=== PATIENT | female | born 1945 | race Caucasian/White ===

== ENCOUNTER 2016-09-10 18:07 | Observation (INO) ==
[2016-09-10 20:11] LABS: Basophils # 0.1 K/mcL (0.0-0.2); Basophils % 0.6 %; Eosinophils % 0.3 %; Hematocrit 38.1 % (35.3-44.9); Hemoglobin 12.1 g/dL (11.5-15.4); Immature Granulocytes % 0.6 % (0-4); Lymphocytes % 30.2 %; Mean Corpuscular HGB Conc 31.8 g/dL (31.6-35.5); Mean Corpuscular Hemoglobin 26.8 pg (28.0-33.3); Mean Corpuscular Volume 84.5 fL (83.0-100.0); Mean Platelet Volume 9.8 fL (9.4-12.4); Monocytes # 0.4 K/mcL (0.0-1.3); Monocytes % 4.4 %; Neutrophils # 6.3 K/mcL (1.6-8.9); Platelet Count 434 K/mcL (140-400); Red Blood Count 4.51 M/mcL (3.82-4.97); Red Cell Distribution Width 17.9 % (11.5-14.5); Segmented Neutrophils % 63.9 %
[2016-09-10 20:23] LABS: BUN/Creatinine Ratio 17 (6-26); Blood Urea Nitrogen 16 mg/dL (7-20); Calcium 9.5 mg/dL (8.6-10.8); Carbon Dioxide 30 mEq/L (19-29); Chloride 104 mEq/L (98-109); Glucose 104 mg/dL (70-99); Osmolality,Calculated 289 (280-300); Sodium 139 mEq/L (136-145); eGFR For African Americans > 60 (> 60); eGFR For Non-African Americans 60 (> 60)
[2016-09-10 20:23] LABS: Bilirubin,Urine Negative (Negative); Blood,Urine Negative (Negative); Clarity,Urine Clear (Clear); Color,Urine Yellow (Yellow); Glucose,Urine (UA) Normal (Normal); Ketones,Urine Negative (Negative); Leukocyte Esterase,Urine Negative (Negative); Nitrite,Urine Negative (Negative); PH,Urine 7.5 pH Units (5.0-8.0); Protein,Urine Negative (Neg-Trace); Specific Gravity,Urine 1.021 (1.010-1.025); Urobilinogen,Urine Normal (Normal)
[2016-09-10 21:01] LABS: Prothrombin Time 10.5 Seconds (9.4-12.1)
[2016-09-10 21:03] LABS: Activated Partial Thrombo Time 27.3 Seconds (26.0-36.0)
--- NOTE | 2016-09-10 23:16 | Emergency Department Note ---
Disposition Clinical Impression: Weakness Disposition: Admitted As Inpatient Condition: Fair General Adult HPI - General Chief complaint: ED Shortness of Breath/Dyspnea Stated complaint: AFTAB, weakness, abd pain Time Seen by Provider: 09/10/16 18:43 Source: patient Limitations: no limitations Nursing Notes Reviewed: Yes Vital Signs Reviewed: Yes - History of Present Illness HPI Narrative: 71-year-old female presents with increasing weakness over the past month. Family states she has been unable to ambulate over the past 24 hours. Patient denies chest pain or shortness of breath. She denies recent rash or headache or palpitations. Patient's changes in her medications. Denies abdominal pain or dysuria or hematuria or hematochezia. Patient does report intermittent black stools however she is taking iron. Denies diarrhea. Pain Scale: 0 - Related Data Home Medications Medication Instructions Recorded Confirmed Ranitidine HCl [Zantac] 150 mg PO BID PRN 12/16/14 09/10/16 Clopidogrel [Plavix] 75 mg PO DAILY 05/29/16 09/10/16 Esomeprazole Magnesium [Nexium] 40 mg PO DAILY 09/10/16 09/10/16 Ferrous Sulfate 325 mg PO DAILY 09/10/16 09/10/16 Vitamin B Complex [B Complex] 1 each PO DAILY 09/10/16 09/10/16 Allergies Allergy/AdvReac Type Severity Reaction Status Date / Time NSAIDS (Non-Steroidal Allergy Abdominal Verified 09/10/16 19:11 Anti-Inflamma Pain piroxicam [From Feldene] Allergy Hives Verified 09/10/16 19:11 aspirin AdvReac Nausea Verified 09/10/16 19:11 diazepam [From Valium] AdvReac Headache Verified 09/10/16 19:11 Oxycodone AdvReac Vomiting Verified 09/10/16 19:11 promethazine [From Phenergan] AdvReac Drowsy Verified 09/10/16 19:12 All systems ED: reviewed and negative except as stated. Constitutional: Reports: weakness Cardiovascular: Denies: chest pain, palpitations Respiratory: Denies: cough, dyspnea, wheezes Gastrointestinal: Denies: abdominal pain, nausea, vomiting, diarrhea Past Medical History - Past Medical History Attestation: Yes The following information was validated with the patient. Source: patient Medical history: Reports: arthritis, GERD, osteoporosis, other Surgical history: Reports: appendectomy, cholecystectomy, orthopedic, other, other Psychiatric history: Reports: no psych history - Social History Smoking Status: Never smoker Smokeless Tobacco Status: No Alcohol use: Reports: none Drug use: Reports: none Physical Exam General: Alert and in no acute distress Skin: Warm, dry, intact Head: Normocephalic and atraumatic Neck: Supple, trachea midline and no tenderness Cardiovascular: RRR, no murmur, normal perfusion Respiratory: CTAB, no wheezing, cough, or respiratory distress Musculoskeletal: Normal strength, no tenderness, swelling or deformity GI: Soft, nontender, nondistended. Bowel sounds present Neuro: A&O to person, place, time and situation. No focal deficits noted on exam Psychiatric: cooperative and appropriate mood and affect. - General Limitations: no limitations General appearance: alert, in no apparent distress Course Vital Signs Temperature 97.8 F 09/10/16 19:06 Pulse Rate 53 09/10/16 19:06 Respiratory Rate 18 09/10/16 19:06 Blood Pressure 195/73 09/10/16 19:06 O2 Sat by Pulse Oximetry 98 09/10/16 19:06 Temperature 98.5 F 09/10/16 22:27 Pulse Rate 54 09/10/16 21:40 Respiratory Rate 20 09/10/16 22:27 Blood Pressure 170/75 09/10/16 22:27 O2 Sat by Pulse Oximetry 96 09/10/16 21:40 Oxygen Delivery Oxygen Delivery Room Air Medical Decision Making - MDM Narrative Medical decision making narrative: Patient has an initial negative troponin. EKG showed sinus bradycardia with a rate of 54 and then a repeat EKG showed sinus bradycardia with a rate of 50. Urinalysis was negative for UTI. Patient will be admitted to the hospital for increasing weakness for further evaluation. - Medical Records Medical records reviewed: Yes I reviewed the patient's medical records. - Lab Data Lab results reviewed: Yes I reviewed the patient's lab results. Result diagrams: 09/10/16 19:52 09/10/16 19:52 Lab Results 09/10/16 09/10/16 09/10/16 Range/Units 19:52 19:52 19:52 WBC 9.8 (4.3-11.1) K/mcL RBC 4.51 (3.82-4.97) M/mcL Hgb 12.1 (11.5-15.4) g/dL Hct 38.1 (35.3-44.9) % MCV 84.5 (83.0-100.0) fL MCH 26.8 L (28.0-33.3) pg MCHC 31.8 (31.6-35.5) g/dL RDW 17.9 H (11.5-14.5) % Plt Count 434 H (140-400) K/mcL MPV 9.8 (9.4-12.4) fL Immature Gran % 0.6 (0-4) % Seg Neutrophils % 63.9 % Lymphocytes % 30.2 % Monocytes % 4.4 % Eosinophils % 0.3 % Basophils % 0.6 % Neutrophils # 6.3 (1.6-8.9) K/mcL Lymphocytes # 3.0 (0.6-4.6) K/mcL Monocytes # 0.4 (0.0-1.3) K/mcL Eosinophils # 0.0 (0.0-0.6) K/mcL Basophils # 0.1 (0.0-0.2) K/mcL PT (9.4-12.1) Seconds INR APTT (26.0-36.0) Seconds Sodium 139 (136-145) mEq/L Potassium 4.0 (3.5-4.5) mEq/L Chloride 104 (98-109) mEq/L Carbon Dioxide 30 H (19-29) mEq/L BUN 16 (7-20) mg/dL Creatinine 0.92 (0.57-1.11) mg/dL Est GFR ( Amer) > 60 (> 60) Est GFR (Non-Af Amer) 60 (> 60) BUN/Creatinine Ratio 17 (6-26) Glucose 104 H (70-99) mg/dL Calculated Osmolality 289 (280-300) Lactic Acid 0.9 (0.5-2.2) mmol/L Calcium 9.5 (8.6-10.8) mg/dL Troponin I (0-0.03) ng/mL B-Natriuretic Peptide (0-100) pg/mL Urine Color (Yellow) Urine Clarity (Clear) Urine pH (5.0-8.0) pH Units Ur Specific [place] (1.010-1.025) Urine Protein (Neg-Trace) mg/dL Urine Glucose (UA) (Normal) mg/dL Urine Ketones (Negative) mg/dL Urine Blood (Negative) Urine Nitrite (Negative) Urine Bilirubin (Negative) Urine Urobilinogen (Normal) mg/dL Ur Leukocyte Esterase (Negative) Ur Culture Indicated? (NO) 09/10/16 09/10/16 09/10/16 Range/Units 19:52 19:52 19:52 WBC (4.3-11.1) K/mcL RBC (3.82-4.97) M/mcL Hgb (11.5-15.4) g/dL Hct (35.3-44.9) % MCV (83.0-100.0) fL MCH (28.0-33.3) pg MCHC (31.6-35.5) g/dL RDW (11.5-14.5) % Plt Count (140-400) K/mcL MPV (9.4-12.4) fL Immature Gran % (0-4) % Seg Neutrophils % % Lymphocytes % % Monocytes % % Eosinophils % % Basophils % % Neutrophils # (1.6-8.9) K/mcL Lymphocytes # (0.6-4.6) K/mcL Monocytes # (0.0-1.3) K/mcL Eosinophils # (0.0-0.6) K/mcL Basophils # (0.0-0.2) K/mcL PT 10.5 (9.4-12.1) Seconds INR 1.0 APTT 27.3 (26.0-36.0) Seconds Sodium (136-145) mEq/L Potassium (3.5-4.5) mEq/L Chloride (98-109) mEq/L Carbon Dioxide (19-29) mEq/L BUN (7-20) mg/dL Creatinine (0.57-1.11) mg/dL Est GFR ( Amer) (> 60) Est GFR (Non-Af Amer) (> 60) BUN/Creatinine Ratio (6-26) Glucose (70-99) mg/dL Calculated Osmolality (280-300) Lactic Acid (0.5-2.2) mmol/L Calcium (8.6-10.8) mg/dL Troponin I 0.00 (0-0.03) ng/mL B-Natriuretic Peptide 175 H (0-100) pg/mL Urine Color (Yellow) Urine Clarity (Clear) Urine pH (5.0-8.0) pH Units Ur Specific [place] (1.010-1.025) Urine Protein (Neg-Trace) mg/dL Urine Glucose (UA) (Normal) mg/dL Urine Ketones (Negative) mg/dL Urine Blood (Negative) Urine Nitrite (Negative) Urine Bilirubin (Negative) Urine Urobilinogen (Normal) mg/dL Ur Leukocyte Esterase (Negative) Ur Culture Indicated? (NO) 09/10/16 Range/Units 20:15 WBC (4.3-11.1) K/mcL RBC (3.82-4.97) M/mcL Hgb (11.5-15.4) g/dL Hct (35.3-44.9) % MCV (83.0-100.0) fL MCH (28.0-33.3) pg MCHC (31.6-35.5) g/dL RDW (11.5-14.5) % Plt Count (140-400) K/mcL MPV (9.4-12.4) fL Immature Gran % (0-4) % Seg Neutrophils % % Lymphocytes % % Monocytes % % Eosinophils % % Basophils % % Neutrophils # (1.6-8.9) K/mcL Lymphocytes # (0.6-4.6) K/mcL Monocytes # (0.0-1.3) K/mcL Eosinophils # (0.0-0.6) K/mcL Basophils # (0.0-0.2) K/mcL PT (9.4-12.1) Seconds INR APTT (26.0-36.0) Seconds Sodium (136-145) mEq/L Potassium (3.5-4.5) mEq/L Chloride (98-109) mEq/L Carbon Dioxide (19-29) mEq/L BUN (7-20) mg/dL Creatinine (0.57-1.11) mg/dL Est GFR ( Amer) (> 60) Est GFR (Non-Af Amer) (> 60) BUN/Creatinine Ratio (6-26) Glucose (70-99) mg/dL Calculated Osmolality (280-300) Lactic Acid (0.5-2.2) mmol/L Calcium (8.6-10.8) mg/dL Troponin I (0-0.03) ng/mL B-Natriuretic Peptide (0-100) pg/mL Urine Color Yellow (Yellow) Urine Clarity Clear (Clear) Urine pH 7.5 (5.0-8.0) pH Units Ur Specific [place] 1.021 (1.010-1.025) Urine Protein Negative (Neg-Trace) mg/dL Urine Glucose (UA) Normal (Normal) mg/dL Urine Ketones Negative (Negative) mg/dL Urine Blood Negative (Negative) Urine Nitrite Negative (Negative) Urine Bilirubin Negative (Negative) Urine Urobilinogen Normal (Normal) mg/dL Ur Leukocyte Esterase Negative (Negative) Ur Culture Indicated? NO (NO) - Radiology Data Radiology results reviewed: Yes I reviewed the patient's radiology results.
--- NOTE | 2016-09-10 23:22 | Internal Med History&Physical ---
Date of Encounter: 09/11/16 Time of Encounter: 23:15 Assessment and Plan (1) Generalized weakness Current visit: Yes Status: Acute Generalized weakness, associated with mild shortness of breath - present for almost one month, worse over the past 12-24 hours - unclear etiology Continue IV fluids, continue home meds EKG - sinus bradycardia with no acute ST-T changes Troponin - negative Chest x-ray - no acute process BN peptide - 175 H&H - 12.1 and 38.1 Urinalysis - normal Cardiac telemetry, labs in a.m. (2) GERD (gastroesophageal reflux disease) Current visit: Yes Status: Chronic Chronic GERD - continue Nexium Qualifiers: Esophagitis presence: without esophagitis Qualified Code(s): K21.9 - Gastro -esophageal reflux disease without esophagitis (3) TIA (transient ischemic attack) Current visit: Yes Status: Chronic History of TIA - patient is on Plavix No focal deficits at this time, no facial droop, no speech deficit No suspicion for TIA or CVA at this time Qualifiers: Transient cerebral ischemia type: unspecified Qualified Code(s): G45.9 - Transient cerebral ischemic attack, unspecified (4) DVT prophylaxis Current visit: Yes Status: Acute Continue SCDs, ambulate Internal Medicine - H&P: HPI Chief complaint: Generalized weakness, shortness of breath Admitted From: Emergency Dept Plans for Post Hospital Care: Home History of present illness: Ms. Jacques is a 71 year old female with past medical history of TIA and GERD. She presents to the ED with complaints of generalized weakness and shortness of breath. On examination patient is awake and alert. Not in any distress. Able to provide HISTORY. No family members at bedside. Patient states she has been having increasing generalized weakness over the past 1 month. She states she donated blood about 1 month ago and has been having this weakness ever since. She also complains of mild weakness since then. Patient states this afternoon around 2 PM she had difficulty ambulating and became short of breath and also had generalized weakness. Patient's family members called the squad and patient was then brought to the ED. Patient denies chest pain, denies palpitations, denies fever or diarrhea or abdominal pain. Patient denies dysuria or hematuria or hematochezia. No aggravating or alleviating factors. No other associated symptoms. Patient's symptoms seem to be vague at this time. Unclear etiology of generalized weakness shortness of breath. Initial evaluation in the ED is negative. BNP peptide is slightly elevated at 175 and troponin is negative. EKG shows sinus bradycardia and no acute ST-T changes. Chest x-ray does not show any acute process. Patient is being placed on observation for generalized weakness. We will repeat labs in a.m. and repeat EKG in a.m. Echocardiogram was done in November 2015 and shows LVEF of 60% with normal LV size and function and evidence of mild diastolic dysfunction and mildly dilated RV. Continue all home medications. Patient takes Plavix because she is allergic to aspirin. She has a history of TIA. Patient has been explained about her condition and plan of care. Understood and agreed. No unanswered questions. CODE STATUS full code. Past Med Surg Social Fam HX - Past Medical History Medical history: arthritis, GERD, osteoporosis, other Psychiatric history: no psych history - Past Surgical History Surgical History: appendectomy, cholecystectomy, orthopedic, other, other - Social History Smoking Status: Never smoker Smokeless Tobacco Status: No Alcohol use: none Drug use: none - Family History Father Hx Family Cardiac Disorders: Yes (CHF) Sister Living Status: Hx Family Cancer: Yes (colon and lung) Mother Hx Family Endocrine Disorder: Yes (DM) Internal Medicine - H&P: Meds Ranitidine HCl [Zantac] 150 mg PO BID PRN 12/16/14 [History] Clopidogrel [Plavix] 75 mg PO DAILY 05/29/16 [History] Esomeprazole Magnesium [Nexium] 40 mg PO DAILY 09/10/16 [History] Ferrous Sulfate 325 mg PO DAILY 09/10/16 [History] Vitamin B Complex [B Complex] 1 each PO DAILY 09/10/16 [History] Allergies NSAIDS (Non-Steroidal Anti-Inflamma Allergy (Verified 09/10/16 19:11) Abdominal Pain piroxicam [From Feldene] Allergy (Verified 09/10/16 19:11) Hives aspirin Adverse Reaction (Verified 09/10/16 19:11) Nausea diazepam [From Valium] Adverse Reaction (Verified 09/10/16 19:11) Headache Oxycodone Adverse Reaction (Verified 09/10/16 19:11) Vomiting promethazine [From Phenergan] Adverse Reaction (Verified 09/10/16 19:12) Drowsy All Systems PM: A 10-system review of systems was performed and is negative for pertinent findings except as documented above in the HPI. - Constitutional Constitutional: fatigue, weakness, no excessive sweating, no fever(s) - EENT Eyes: no blurry vision - Cardiovascular Cardiovascular ROS IM: dyspnea, dyspnea on exertion, no chest pain, no edema, no orthopnea, no syncope - Respiratory Respiratory: dyspnea, dyspnea on exertion, no cough, no hemoptysis, no wheezing , no chest congestion - Gastrointestinal Gastrointestinal: nausea, no abdominal pain, no bloating, no cramping, no diarrhea, no hematemesis, no hematochezia, no vomiting - Genitourinary Genitourinary: no dysuria - Musculoskeletal Musculoskeletal ROS IM: back pain - Neurological Neurological ROS: no abnormal gait, no abnormal speech, no dizziness, no loss of vision, no numbness, no tingling - Constitutional Vitals: Temp Pulse Resp BP Pulse Ox 98.5 F 54 20 170/75 96 09/10/16 22:27 09/10/16 21:40 09/10/16 22:27 09/10/16 22:27 09/10/16 21:40 General appearance: Present: A&O X 3, pleasant, no acute distress, answers questions appropriately - Head Head exam: Present: atraumatic - Eye Eye exam: Present: EOMI - ENT ENT exam: Present: mucous membranes moist - Neck Neck exam general surgery: Present: supple - Respiratory Respiratory exam: Present: CTAB. Absent: accessory muscle use, rales, rhonchi, wheezes, tachypnea - Cardiovascular Cardiovascular exam: Present: RRR, +S1, +S2, systolic murmur - GI/Abdominal GI/Abdominal exam: Present: soft, no peritoneal signs. Absent: distended, firm , guarding, rigid, tenderness - Extremities Exam Extremities exam: Present: radial pulses palpable and symetrical. Absent: cyanotic, pedal edema, tenderness - Neurological Exam Neurological exam: Present: alert, oriented X3, no focal deficits. Absent: facial droop, speech deficit Internal Med - H&P Results - Labs CBC & Chem 7: 09/10/16 19:52 09/10/16 19:52
[2016-09-10] MEDS ORDERED: Naloxone 0.4 MG/ML INJ IVP PRN (23:46)
[2016-09-10] MEDS ORDERED: Acetaminophen 325 MG TABLET PO PRN (23:46)
[2016-09-10] MEDS ORDERED: Ondansetron 4 MG/2 ML VIAL IVP PRN (23:46)
[2016-09-11] MEDS: 0.9 % Sodium Chloride 1,000 ML IVC SCH ×2 (01:48→15:28)
[2016-09-11] MEDS: Famotidine 20 MG/2 ML VIAL IVP SCH ×2 (05:50→17:29)
[2016-09-11 06:03] LABS: Hematocrit 34.5 % (35.3-44.9); Mean Corpuscular HGB Conc 31.9 g/dL (31.6-35.5); Mean Corpuscular Hemoglobin 26.8 pg (28.0-33.3); Mean Corpuscular Volume 84.1 fL (83.0-100.0); Platelet Count 377 K/mcL (140-400); Red Cell Distribution Width 17.8 % (11.5-14.5)
[2016-09-11 06:14] LABS: BUN/Creatinine Ratio 16 (6-26); Blood Urea Nitrogen 13 mg/dL (7-20); Calcium 8.7 mg/dL (8.6-10.8); Carbon Dioxide 30 mEq/L (19-29); Chloride 106 mEq/L (98-109); Glucose 102 mg/dL (70-99); Osmolality,Calculated 286 (280-300); Potassium 3.8 mEq/L (3.5-4.5); Sodium 138 mEq/L (136-145); eGFR For African Americans > 60 (> 60); eGFR For Non-African Americans > 60 (> 60)
[2016-09-11] MEDS: Vitamin B Complex/Vit C/Vit E 1 EACH TABLET PO SCH (08:37)
--- NOTE | 2016-09-11 15:13 | Electrocardiograph Report ---
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
--- NOTE | 2016-09-11 15:15 | Electrocardiograph Report ---
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
[2016-09-11 15:26] LABS: Hematocrit 39.1 % (35.3-44.9); Immature Reticulocyte % 25.4 % (11.0-38.0); Retculocyte # 0.11 M/mcL (0.05-0.10); Reticulocyte % 2.5 % (1.6-2.8)
[2016-09-11 15:59] LABS: Folate 12.7 ng/mL (7.0-31.4)
--- NOTE | 2016-09-11 17:04 | Internal Med Progress Note ---
Date of Encounter: 09/11/16 Time of Encounter: 16:00 - Assessment and plan (1) Generalized weakness Current Visit: Yes Status: Acute Assessment and plan: secondary to iron deficiency anemia from recent blood donation. Ferritin level is 31. reticulocyte is 0.11. hgb is 11-12. normal b12 and folate. increase ferrous sulfate to tid. repeat H&H in AM. pending echocardiogram results. if no drop in hgb will dc pt home in AM. (2) Symptomatic anemia Current Visit: Yes Status: Acute Assessment and plan: hgb at 12 but patient reports her hgb is always 14. plan as above. no bleeding. (3) GERD (gastroesophageal reflux disease) Current Visit: Yes Status: Chronic Assessment and plan: continue home meds Qualifiers: Esophagitis presence: without esophagitis Qualified Code(s): K21.9 - Gastro -esophageal reflux disease without esophagitis - Subjective Interval history: Patient states she developed significant shortness of breath while ambulating with PT this morning. She barely was able to walk a few steps. - Constitutional Vitals: Temp Pulse Resp BP Pulse Ox 98 F 54 15 133/69 90 09/11/16 15:35 09/11/16 15:35 09/11/16 15:35 09/11/16 15:35 09/11/16 15:35 General appearance: Present: cooperative, A&O X 3, pleasant, no acute distress, answers questions appropriately - Neck Neck exam general surgery: Present: supple, trachea midline. Absent: lymphadenopathy - Respiratory Respiratory exam: Present: CTAB - Cardiovascular Cardiovascular exam: Present: RRR - GI/Abdominal GI/Abdominal exam: Present: normal bowel sounds, soft. Absent: distended, tenderness - Extremities Exam Extremities exam: Absent: pedal edema - Back Exam Back exam: Absent: CVA tenderness (L), CVA tenderness (R) - Neurological Exam Neurological exam: Present: alert, oriented X3, no focal deficits, strengths equal and symetr throughout. Absent: facial droop, speech deficit - Skin Skin exam: Absent: rash Internal Medicine: Result - Labs CBC & Chem 7: 09/11/16 15:01 09/11/16 05:26 Labs: Short CBC 09/11/16 09/11/16 Range/Units 05:26 15:01 WBC 8.2 (4.3-11.1) K/mcL Hgb 11.0 L 12.0 (11.5-15.4) g/dL Hct 34.5 L 39.1 (35.3-44.9) % Plt Count 377 (140-400) K/mcL BMP 09/11/16 05:26 Sodium 138 Potassium 3.8 Chloride 106 Carbon Dioxide 30 H BUN 13 Creatinine 0.83 Glucose 102 H Calcium 8.7 Cardiac Enzymes 09/11/16 Range/Units 05:26 Troponin I 0.00 (0-0.03) ng/mL - ABG Interpretation ABG results: PT/INR, D-dimer PT 10.5 Seconds (9.4-12.1) 09/10/16 19:52 Consult Discharge Plan - Plan Referrals: Silvano Wagner DO [Primary Care Provider] -
[2016-09-11 18:02] LABS: % Iron Saturation 43 % (15-50); Iron 179 mcg/dL (50-170); Transferrin 297 mg/dL (180-382)
[2016-09-12 05:03] LABS: Basophils # 0.1 K/mcL (0.0-0.2); Basophils % 0.9 %; Eosinophils # 0.2 K/mcL (0.0-0.6); Hematocrit 34.2 % (35.3-44.9); Hemoglobin 10.6 g/dL (11.5-15.4); Immature Granulocytes % 0.4 % (0-4); Lymphocytes # 3.3 K/mcL (0.6-4.6); Lymphocytes % 41.3 %; Mean Corpuscular Hemoglobin 26.5 pg (28.0-33.3); Mean Corpuscular Volume 85.5 fL (83.0-100.0); Mean Platelet Volume 9.7 fL (9.4-12.4); Monocytes # 0.5 K/mcL (0.0-1.3); Monocytes % 5.9 %; Platelet Count 375 K/mcL (140-400); Red Cell Distribution Width 18.2 % (11.5-14.5); Segmented Neutrophils % 49.5 %
[2016-09-12 05:16] LABS: BUN/Creatinine Ratio 13 (6-26); Blood Urea Nitrogen 13 mg/dL (7-20); Calcium 8.7 mg/dL (8.6-10.8); Carbon Dioxide 30 mEq/L (19-29); Chloride 107 mEq/L (98-109); Glucose 100 mg/dL (70-99); Magnesium 1.9 mg/dL (1.6-2.6); Osmolality,Calculated 290 (280-300); Phosphorous 4.3 mg/dL (2.3-4.7); Sodium 140 mEq/L (136-145); eGFR For African Americans > 60 (> 60); eGFR For Non-African Americans 54 (> 60)
[2016-09-12] MEDS: Famotidine 20 MG/2 ML VIAL IVP SCH ×2 (06:07→18:45)
[2016-09-12] MEDS: Vitamin B Complex/Vit C/Vit E 1 EACH TABLET PO SCH (09:00)
--- NOTE | 2016-09-12 18:21 | Internal Med Progress Note ---
Date of Encounter: 09/12/16 Time of Encounter: 17:30 - Assessment and plan (1) Generalized weakness Current Visit: Yes Status: Acute Assessment and plan: secondary to iron deficiency anemia from recent blood donation and bradycardia. (2) Bradycardia Current Visit: Yes Status: Acute Assessment and plan: HR went down to 46 while awake early this morning. HR has remained in the 52-58 range today. check TSH, free t4. lunchroom monitor. Patient does not take any medications that could cause bradycardia. After walking, patient's heart rate was not adequate. It remained at 56. BP after walking went up to 170/70. Her SaO2 remained adequate. Echocardiogram showed LVEF 60%, normal left ventricular size and systolic function, normal right ventricular size and function, no evidence of PFO. (3) Symptomatic anemia Current Visit: Yes Status: Acute Assessment and plan: iron deficiency anemia. acute symptomatic anemia. hgb dropped to 10. no visible bleeding. check FOBT. hemodynamically stable. close monitor of hgb and if hgb continues to drop will consult GI. continue iron supplementation. Ferritin level is 31. reticulocyte is adequate at 0.11. normal b12 and folate. (4) GERD (gastroesophageal reflux disease) Current Visit: Yes Status: Chronic Assessment and plan: continue home meds Qualifiers: Esophagitis presence: without esophagitis Qualified Code(s): K21.9 - Gastro -esophageal reflux disease without esophagitis - Subjective Interval history: patient became very fatigue after walking. - Constitutional Vitals: Temp Pulse Resp BP Pulse Ox 97.7 F 58 14 125/68 96 09/12/16 15:12 09/12/16 15:12 09/12/16 15:12 09/12/16 15:12 09/12/16 15:12 General appearance: Present: cooperative, A&O X 3, pleasant, no acute distress, answers questions appropriately - Eye Eye exam: Present: PERRL, sclera anicteric - Neck Neck exam general surgery: Present: supple, trachea midline. Absent: lymphadenopathy - Respiratory Respiratory exam: Present: CTAB - Cardiovascular Cardiovascular exam: Present: bradycardia - GI/Abdominal GI/Abdominal exam: Present: normal bowel sounds, soft. Absent: distended, tenderness - Extremities Exam Extremities exam: Absent: pedal edema - Back Exam Back exam: Absent: CVA tenderness (L), CVA tenderness (R) - Neurological Exam Neurological exam: Present: alert, oriented X3, no focal deficits, strengths equal and symetr throughout. Absent: facial droop, speech deficit - Skin Skin exam: Absent: rash Internal Medicine: Result - Labs CBC & Chem 7: 09/12/16 04:35 09/12/16 04:35 Labs: Short CBC 09/12/16 Range/Units 04:35 WBC 8.1 (4.3-11.1) K/mcL Hgb 10.6 L (11.5-15.4) g/dL Hct 34.2 L (35.3-44.9) % Plt Count 375 (140-400) K/mcL Neutrophils # 4.0 (1.6-8.9) K/mcL BMP 09/12/16 04:35 Sodium 140 Potassium 4.0 Chloride 107 Carbon Dioxide 30 H BUN 13 Creatinine 1.00 Glucose 100 H Calcium 8.7 - ABG Interpretation ABG results: PT/INR, D-dimer PT 10.5 Seconds (9.4-12.1) 09/10/16 19:52 Consult Discharge Plan - Plan Referrals: Silvano Wagner DO [Primary Care Provider] -
[2016-09-13 05:39] LABS: Basophils # 0.1 K/mcL (0.0-0.2); Basophils % 0.8 %; Eosinophils # 0.2 K/mcL (0.0-0.6); Eosinophils % 2.1 %; Hemoglobin 10.8 g/dL (11.5-15.4); Immature Granulocytes % 0.5 % (0-4); Lymphocytes # 2.9 K/mcL (0.6-4.6); Mean Corpuscular Hemoglobin 25.7 pg (28.0-33.3); Mean Corpuscular Volume 85.5 fL (83.0-100.0); Mean Platelet Volume 9.5 fL (9.4-12.4); Monocytes # 0.5 K/mcL (0.0-1.3); Neutrophils # 4.9 K/mcL (1.6-8.9); Platelet Count 363 K/mcL (140-400); Red Blood Count 4.21 M/mcL (3.82-4.97); Red Cell Distribution Width 18.3 % (11.5-14.5); Segmented Neutrophils % 56.6 %
[2016-09-13 05:53] LABS: BUN/Creatinine Ratio 11 (6-26); Blood Urea Nitrogen 11 mg/dL (7-20); Calcium 8.8 mg/dL (8.6-10.8); Carbon Dioxide 32 mEq/L (19-29); Chloride 105 mEq/L (98-109); Glucose 95 mg/dL (70-99); Osmolality,Calculated 289 (280-300); Potassium 4.2 mEq/L (3.5-4.5); Sodium 140 mEq/L (136-145); eGFR For African Americans > 60 (> 60); eGFR For Non-African Americans 53 (> 60)
[2016-09-13] MEDS: Famotidine 20 MG/2 ML VIAL IVP SCH (05:59)
[2016-09-13 06:51] VITALS: BP 131/76
[2016-09-13] MEDS: Vitamin B Complex/Vit C/Vit E 1 EACH TABLET PO SCH (08:45)
--- NOTE | 2016-09-13 09:20 | Discharge Summary ---
Date of Encounter: 09/13/16 Time of Encounter: 09:17 - Discharge Diagnosis (1) Generalized weakness Priority: Primary Status: Acute (2) Subclinical hypothyroidism Priority: Primary Status: Acute (3) Bradycardia Priority: Primary Status: Acute (4) Symptomatic anemia Priority: Primary Status: Acute (5) GERD (gastroesophageal reflux disease) Priority: Secondary Status: Chronic Qualifiers: Esophagitis presence: without esophagitis Qualified Code(s): K21.9 - Gastro -esophageal reflux disease without esophagitis - Discharge Medications Prescriptions: Levothyroxine [Synthroid] 25 mcg PO DAILY@0630 #30 tab Home Medications: Ranitidine HCl [Zantac] 150 mg PO BID PRN 12/16/14 [History] Clopidogrel [Plavix] 75 mg PO DAILY 05/29/16 [History] Esomeprazole Magnesium [Nexium] 40 mg PO DAILY 09/10/16 [History] Vitamin B Complex [B Complex] 1 each PO DAILY 09/10/16 [History] Ferrous Sulfate 325 mg PO TIDWM tab 09/13/16 [Rx] Levothyroxine [Synthroid] 25 mcg PO DAILY@0630 #30 tab 09/13/16 [Rx] Allergies/Adverse Reactions: Allergies NSAIDS (Non-Steroidal Anti-Inflamma Allergy (Verified 09/10/16 19:11) Abdominal Pain piroxicam [From Feldene] Allergy (Verified 09/10/16 19:11) Hives aspirin Adverse Reaction (Verified 09/10/16 19:11) Nausea diazepam [From Valium] Adverse Reaction (Verified 09/10/16 19:11) Headache Oxycodone Adverse Reaction (Verified 09/10/16 19:11) Vomiting promethazine [From Phenergan] Adverse Reaction (Verified 09/10/16 19:12) Drowsy Procedures/tests Complete & Pending: Procedures Performed prior 72 hours Category Date Time Status ECG 12 lead ECG [ECG] AM 0600 Y 09/11/16 06:00 Ordered ECG 12 lead ECG [ECG] Routine Y 09/10/16 21:18 Completed EV limited echocardiogram Routine Y 09/11/16 14:49 Completed Date of admission: 09/10/16 22:18 Primary care physician: Lolly Tamez Consults: 09/10/16 23:47 Consult to Physical Therapy [CONS] Routine Comment: Evaluate, develop and implement POC Reason for Consult: PT eval Consult to Chemist [CONS] Routine Reason for SW Consult: Discharge planning - Patient Status Disposition: Home, Self-Care Condition: Good Functional capacity at discharge: independent ambulation Overall status at discharge: patient is not back to baseline - Discharge Instructions Instructions: Hypothyroidism (DC), Anemia (GEN) Follow Up With: Silvano Wagner DO [Primary Care Provider] - (Referred to Silvano Wagner DO) Forms: ED Satisfaction Letter - Diet and Activity Activity: increase activity as tolerated Diet: low fat, low cholesterol, low salt diet Interval History: patient has no complains. no bleeding. Hospital course: Ms. Jacques is a 71 year old female with past medical history of GERD and osteoarthritis presents with a chief complaint of progressive shortness of breath and generalized weakness. Patient has stayed she donated blood about a month ago and since then she has been very weak and short of breath on exertion. Troponin was negative. EKG was unremarkable. Hemoglobin on admission was 12.1 but it dropped to 10.6. Ferritin level is 31. reticulocyte is adequate at 0.11. normal b12 and folate. She was diagnosed of iron deficiency anemia, symptomatic and her fear is sulfa was increased to 3 times a day. front desk monitor revealed lowest heart rate of 46 for a short period of time, average heart rate in the mid 50s. TSH was mildly elevated at 5. Free T4 was low normal at 0.8. Patient was diagnosed with subclinical hypothyroidism and started a low-dose levothyroxine at 25. PLAN: Repeat TSH, free T4 and ferritin in one month. Repeat H&H in one week. Patient explaining the till her diagnosis, diagnostic test results, and treatment. She verbalized understanding and agreed with the plan. She will follow up with her primary care doctor next week. - Time Spent with Patient Total time spent providing and/or coordinating discharge services: - Constitutional Vitals: Temp Pulse Resp BP Pulse Ox 97.8 F 50 14 131/76 96 09/13/16 06:44 09/13/16 06:44 09/13/16 06:44 09/13/16 06:44 09/13/16 06:44 General appearance: Present: cooperative, A&O X 3, pleasant, no acute distress, answers questions appropriately - Neck Neck exam general surgery: Present: supple, trachea midline. Absent: lymphadenopathy - Respiratory Respiratory exam: Present: CTAB - Cardiovascular Cardiovascular exam: Present: RRR - GI/Abdominal GI/Abdominal exam: Present: normal bowel sounds, soft. Absent: distended, tenderness - Extremities Exam Extremities exam: Absent: pedal edema - Back Exam Back exam: Absent: CVA tenderness (L), CVA tenderness (R) - Neurological Exam Neurological exam: Present: alert, oriented X3, no focal deficits, strengths equal and symetr throughout. Absent: facial droop, speech deficit - Skin Skin exam: Absent: rash
[2016-09-14] MEDS ORDERED: Levothyroxine 25 MCG TABLET PO SCH (08:47)
== END 2016-09-13 13:21 | disposition home or self-care (01) ==
LOC: 3BNU 18:07 → EMEROO 18:07 → SUATTDRO 22:18 → 3BNU 23:00
PROVIDERS: ADMIT Registered Nurse; ATTEND Internal Medicine

== ENCOUNTER 2020-08-02 12:55 | Observation (INO) ==
[2020-08-02] MEDS ORDERED: Isovue-370 500 ML BOTTLE IVP ONE (13:29)
[2020-08-02 13:47] LABS: Hematocrit 46.7 % (35.3-44.9); Hemoglobin 15.3 g/dL (11.5-15.4); Mean Corpuscular HGB Conc 32.8 g/dL (31.6-35.5); Mean Corpuscular Hemoglobin 30.4 pg (28.0-33.3); Mean Corpuscular Volume 92.8 fL (83.0-100.0); Mean Platelet Volume 9.4 fL (9.4-12.4); Platelet Count 341 K/mcL (140-400); Red Blood Count 5.03 M/mcL (3.82-4.97); Red Cell Distribution Width 14.6 % (11.5-14.5); White Blood Count 10.4 K/mcL (4.3-11.1)
[2020-08-02] MEDS ORDERED: *HR* HYDROmorphone (PF) 1 MG/ML SYRINGE IVP STA (13:54)
[2020-08-02 14:04] LABS: BUN/Creatinine Ratio 17 (6-26); Blood Urea Nitrogen 18 mg/dL (8-23); Calcium 9.6 mg/dL (8.6-10.3); Carbon Dioxide 26 mEq/L (23-29); Chloride 102 mEq/L (98-107); Glucose 105 mg/dL (70-105); Osmolality,Calculated 286 (280-300); Potassium 3.5 mEq/L (3.5-5.1); Sodium 137 mEq/L (136-145); Troponin I < 0.03 ng/mL (< 0.04); eGFR For African Americans > 60 (> 60); eGFR For Non-African Americans 51 (> 60)
[2020-08-02 14:07] LABS: Prothrombin Time 12.1 Seconds (9.4-12.1)
[2020-08-02 14:10] LABS: Activated Partial Thrombo Time 29.3 Seconds (26.0-36.0)
[2020-08-02] MEDS ORDERED: Naloxone 0.4 MG/ML INJ IVP PRN (16:14)
[2020-08-02] MEDS ORDERED: Ondansetron 4 MG/2 ML VIAL IVP PRN (16:14)
[2020-08-02] MEDS ORDERED: *HR* OxyCODONE/APAP 5/325 TABLET PO PRN (16:16)
[2020-08-02] MEDS ORDERED: tiZANidine 4 MG TABLET PO PRN (16:41)
[2020-08-03 05:08] LABS: Basophils # 0.1 K/mcL (0.0-0.2); Basophils % 1.3 %; Eosinophils # 0.1 K/mcL (0.0-0.6); Eosinophils % 1.7 %; Hematocrit 46.9 % (35.3-44.9); Hemoglobin 14.7 g/dL (11.5-15.4); Immature Granulocytes % 0.3 % (0-4); Lymphocytes # 2.7 K/mcL (0.6-4.6); Lymphocytes % 39.1 %; Mean Corpuscular HGB Conc 31.3 g/dL (31.6-35.5); Mean Corpuscular Hemoglobin 29.9 pg (28.0-33.3); Mean Corpuscular Volume 95.3 fL (83.0-100.0); Mean Platelet Volume 9.3 fL (9.4-12.4); Monocytes # 0.4 K/mcL (0.0-1.3); Monocytes % 6.4 %; Neutrophils # 3.5 K/mcL (1.6-8.9); Platelet Count 316 K/mcL (140-400); Red Blood Count 4.92 M/mcL (3.82-4.97); Red Cell Distribution Width 14.8 % (11.5-14.5); Segmented Neutrophils % 51.2 %; White Blood Count 6.9 K/mcL (4.3-11.1)
[2020-08-03 05:27] LABS: BUN/Creatinine Ratio 15 (6-26); Blood Urea Nitrogen 15 mg/dL (8-23); Carbon Dioxide 28 mEq/L (23-29); Chloride 103 mEq/L (98-107); Glucose 107 mg/dL (70-105); Osmolality,Calculated 283 (280-300); Potassium 4.1 mEq/L (3.5-5.1); Sodium 136 mEq/L (136-145); eGFR For African Americans > 60 (> 60); eGFR For Non-African Americans 56 (> 60)
[2020-08-03 10:34] VITALS: BP 114/65
[2020-08-03] MEDS ORDERED: *HR* Heparin 5,000 UNIT/ML VIAL SQ SCH (14:00)
== END 2020-08-03 15:53 | disposition home or self-care (01) ==
LOC: 3BNU 12:55 → EMEROOARM 12:55 → SUATTDRO 15:40 → 3BNU 17:16
PROVIDERS: ADMIT Pharmacist; ATTEND Internal Medicine